=== PATIENT | male | born 1995 | race Two or more races ===

== ENCOUNTER → 2018-03-28 11:40 | Outpatient (CLI) | payer OTHER, SELFPAY | PROVIDERS: Visit Provider Family Medicine | DX: M79.645 Pain in left finger(s) (principal) | CPT/HCPCS: 73130 ==

== ENCOUNTER 2019-10-27 12:31 | Emergency (ER) | payer OTHER, SELFPAY ==
[2019-10-27 12:32] VITALS: BP 123/81; PULSE 104; RESP 20; TEMP 39.6; O2SAT 95; BMI 23.8
[2019-10-27 12:37] VITALS: BP 123/81; PULSE 104; RESP 20; TEMP 39.6; O2SAT 95; O2SAT 99
--- NOTE | 2019-10-27 12:51 | ED.VIS.URI ---
History of Present Illness Chief Complaint: Cough Informant: Patient, Bench Worker Binding Onset: Days - 3 Context: Gradual Onset Timing: Continuous Quality: occasionally productive of yellow sputum Current Severity: Mild Maximum Severity: Mild Worsened by: - - nothing Relieved by: - - nothing Associated Symptoms: Nasal Congestion, Headache, Myalgias, Vomiting, Productive Cough, - - sore throat. Negative for: Sinus Pressure, Diarrhea, Shortness of Breath, Chest Pain, Hemoptysis Narrative: Patient is a healthy student at the local college, he has had 3 days of fevers, myalgias, sore throat, headache, he vomited once or twice, denies any chest pain, dyspnea, abdominal pain. He states occasionally he has had some shortness of breath but it is due to nasal congestion. 3 weeks ago he returned from a trip to [place] [facility]. After that, he went down to [place] for period of time for spring. This is during Covid pandemic. States since his arrival home he has been quarantining himself, this is the only illness symptoms he has had, in the last 3 days. He states that his sore throat is non-lateralizing. Past Medical History - Allergies and Home Meds Allergies/Adverse Reactions: Allergies No Known Allergies Allergy (Verified 10/27/19 12:36) Primary Care Physician: Care Physician,No Primary [Primary Care Provider] - Surgical History: no surgical history Lives: Roommate Smoking Status: Never smoker Review of Systems General: Reports: Chills, Fever, Malaise, Subjective Eyes: Denies: Visual changes - bilaterally, Diplopia ENT: Reports: Rhinorrhea, Sore throat. Denies: Bilateral ear pain Cardiovascular: Denies: Chest pain, Palpitations Respiratory: Reports: Cough, Sputum. Denies: Dyspnea, Dyspnea on exertion Gastrointestinal: Reports: Nausea, Vomiting. Denies: Abdominal pain, Diarrhea, Melena, Hematochezia Genitourinary: Denies: Dysuria, Hematuria, Frequency Musculoskeletal: Reports: Myalgias, Neck pain - More on the right. Denies: Back pain, Swelling, Extremity Pain Skin: Denies: Rash, Wounds Neurological: Reports: Headache. Denies: Weakness, Numbness Physical Exam Vital Signs/Narrative: Vital Signs Temp Pulse Resp BP Pulse Ox 10/27/19 12:37 103.3 F H 104 H 20 H 123/81 H 95 10/27/19 12:32 103.3 F H 104 H 20 H 123/81 H 95 Inital Vital Signs reviewed: Yes General: Well nourished, Well developed, - - Well-appearing, NAD Head: Normocephalic, Atraumatic. Negative for: Sinus Tenderness Eyes: Perrl, EOMI Ears: Normal external canal, TM's clear Nose: Congestion. Negative for: Swollen Turbinates, Purulent Drainage Mouth/Throat: Posterior Oropharyngeal Erythema Tonsils: Left Tonsilar Erythema, Right Tonsilar Exudates, Right Tonsilar Swelling - Asymmetric Neck: Supple - FROM, No Meningismus, Anterior Lymphadenopathy - Right superficial cervical and submandibular. Negative for: Posterior Lymphadenopathy Cardiovascular: Regular rate, Regular rhythm, No murmurs, Tachycardia - mild Respiratory: No distress, CTA bilaterally, Chest nontender Abdomen: Soft, Nontender, Nondistended, Normal bowel sounds Skin: Normal color, No rash, No Trauma Neurological: Alert, Oriented x3, Cranial nerves II-XII grossly intact, Normal Strength, Normal Sensation, Normal Gait Psychological: Normal affect, Normal Mood Diagnostic/Tx/Re-eval - Medical Decision Making Patient was tested here for influenza and strep throat, they both returned negative. He clinically is well, has a normal pulse ox and clear lungs, with no dyspnea. I think he is stable to self quarantine at home and does not require admission to the hospital for any reason. He is significant exudates on his tonsils, with asymmetry. He does not have significant lateralizing pain on the right however. It is unknown if he has asymmetric tonsils when asymptomatic. Given this asymmetry, peritonsillar abscess is considered, so I will treat him empirically with antibiotics only for that reason. I do not expect his respiratory illness to become better with these antibiotics, and as I discussed with him, coronavirus infection is not able to be ruled out here in the emergency department. According to the [facility] of health recommendations at this time, he likely fits into Tier 4, and they do not recommend testing. He was given Toradol here, and Zofran for his symptoms. They helped some. I think giving him 1 dose of Decadron would be reasonable as well. Certainly it can make people worse if they have coronavirus infection, however he has clear lungs, no dyspnea, no hypoxemia, and no evidence of severe illness such as ours so I think would be reasonable given the physical findings. Discussed with him and he is comfortable with this plan. Also in the differential is mono, although I think less likely since he does not have any posterior lymphadenopathy and this is more anterior, but instead of penicillin-based medications will provide azithromycin. ED Disposition - Plan for ED Patient: Disposition: Home or Assisted Living Diagnosis: Upper respiratory tract infection, Tonsillitis Instructions: ED Tonsillitis, ED Peritonsillar Abscess Prescriptions: Azithromycin [Zithromax Z-Rocael] 250 mg PO UD #1 box Transmission Status: Pending to [facility] Referrals: [facility] [GROUP OF PHYSICIANS] - 1 Week if not improving Additional Instructions: See additional attached instructions regarding continuing the quarantine given the possibility of coronavirus infection.
[2019-10-27] MEDS: Ketorolac 60 MG/2 ML Vial IM (12:55)
[2019-10-27] MEDS: Ondansetron ODT 4 MG Tablet 8 MG PO (12:55)
[2019-10-27 13:35] VITALS: BP 116/77; PULSE 95; RESP 20; TEMP 38.2; O2SAT 96
[2019-10-27 14:00] VITALS: BP 116/77; PULSE 90; RESP 13; TEMP 38.2; O2SAT 96
[2019-10-27 15:03] VITALS: BP 117/74; PULSE 81; RESP 18; TEMP 37.7; O2SAT 99
== END 2019-10-27 15:05 | disposition home or self-care (01) ==
PROVIDERS: Emergency Provider Emergency Medicine
DX: J06.9 Acute upper respiratory infection, unspecified (principal); J03.90 Acute tonsillitis, unspecified
CPT/HCPCS: 87804; 87880; 96372; 99284